=== PATIENT | male | born 1985 | race Caucasian/White ===

== ENCOUNTER 2016-11-15 07:02 | Emergency (ER) | payer MEDICARE ==
[~2016-11-15] VITALS: Ht 175.3 cm; Wt 84.2 kg
[2016-11-15] MEDS ORDERED: LIDODERM 5% P1 PATCH TD (08:45)
[2016-11-15] MEDS ORDERED: NAPROSYN500 MG PO (08:45)
[2016-11-15] MEDS ORDERED: FLEXERIL10 MG PO (08:45)
[2016-11-15 08:54] VITALS: BP 138/98
== END 2016-11-15 08:55 | disposition home or self-care (01) ==
LOC: EME 07:02
DX: M94.0 Chondrocostal junction syndrome [Tietze] (principal); X50.0XXA Overexertion from strenuous movement or load, initial encounter; Y93.89 Activity, other specified; Z71.6 Tobacco abuse counseling; F17.200 Nicotine dependence, unspecified, uncomplicated; Z88.0 Allergy status to penicillin
CPT/HCPCS: 71020; 99281; 99284